=== PATIENT | male | born 1975 ===

== ENCOUNTER 2017-11-22 11:06 | Emergency (ER) | payer SELFPAY ==
[2017-11-22 11:14] VITALS: BMI 30.9
[2017-11-22 11:15] VITALS: BP 123/83; PULSE 72; RESP 20; TEMP 98.4; O2SAT 98
--- NOTE | 2017-11-22 12:47 | RAD ---
PROCEDURE: Left Knee Radiographs. HISTORY: Pain. COMPARISON: None. FINDINGS: BONES: Normal. No fracture. JOINTS: Normal. No osteoarthritis. JOINT EFFUSION: None. OTHER FINDINGS: None. IMPRESSION: Normal radiographs of the left knee.
--- NOTE | 2017-11-22 12:48 | RAD ---
PROCEDURE: Radiographs of the Left Shoulder HISTORY: pain, s/p fall COMPARISON: No prior. FINDINGS: BONES: Normal. No fracture. JOINTS: Normal. Glenohumeral and acromioclavicular joints preserved. No osteoarthritis. SOFT TISSUES: Normal. OTHER FINDINGS: None. IMPRESSION: Normal radiographs of the left shoulder.
--- NOTE | 2017-11-22 13:35 | ED PDOC ---
HPI: General Adult Time Seen by Provider: 11/22/17 11:46 Chief Complaint (Nursing): Trauma Chief Complaint (Provider): Left shoulder and knee pain after fall 4 feet History Per: Patient History/Exam Limitations: no limitations Onset/Duration Of Symptoms: Days Have you had recent travel within the past 21 days to any of the following countries: [place], [place], [place] or [place]?: No Current Symptoms Are (Timing): Still Present Additional Complaint(s): 42 yo male with no medical problems presents with left knee and shoulder pain after a fall off ladder approx 4 feet. PT states he landed on kne and hurt shoulder trying to prevent falling. Pt states he did not hit his head. PT states that he did not take anything for pain [employer]. Past Medical History Vital Signs: Last Vital Signs Temp 98.4 F 11/22/17 11:14 Pulse 72 11/22/17 11:14 Resp 20 11/22/17 11:14 BP 123/83 11/22/17 11:14 Pulse Ox 98 11/22/17 11:14 - Medical History PMH: Denies: Chronic Kidney Disease - Surgical History Surgical History: No Surg Hx - Family History Family History: States: No Known Family Hx - Home Medications Home Medications: Ambulatory Orders Medication Instructions Recorded Ibuprofen [Motrin Tab] 800 mg PO Q6H PRN #20 tab 11/22/17 - Allergies Allergies/Adverse Reactions: Allergies Allergy/AdvReac Type Severity Reaction Status Date / Time No Known Allergies Allergy Verified 11/22/17 11:42 Physical Exam - Reviewed Nursing Documentation Reviewed: Yes Vital Signs Reviewed: Yes - Physical Exam Appears: Positive for: Well, Non-toxic, No Acute Distress Head Exam: Positive for: ATRAUMATIC, NORMAL INSPECTION, NORMOCEPHALIC Skin: Positive for: Normal Color, Warm, DRY Eye Exam: Positive for: Normal appearance ENT: Positive for: Normal ENT Inspection Neck: Positive for: Normal Cardiovascular/Chest: Positive for: Regular Rate, Rhythm Respiratory: Positive for: Normal Breath Sounds. Negative for: Accessory Muscle Use, Respiratory Distress Back: Positive for: Normal Inspection Extremity: Positive for: Normal ROM Neurologic/Psych: Positive for: Alert, Oriented - ECG O2 Sat by Pulse Oximetry: 98 Medical Decision Making Medical Decision Makin - Pt states that he feels "perfecto". shoulder XR and knee XR without acute fracture or dislocation Disposition - Clinical Impression Clinical Impression: Fall, Shoulder pain, Knee pain - Patient ED Disposition Is Patient to be Admitted: No Counseled Patient/Family Regarding: Diagnosis, Need For Followup, Rx Given - Disposition Referrals: [facility] [Outside] Disposition: Routine/Home Disposition Time: 13:40 Condition: GOOD Prescriptions: Ibuprofen [Motrin Tab] 800 mg PO Q6H PRN #20 tab PRN Reason: Pain Instructions: Shoulder Pain (DC) Print Language: [place]
== END 2017-11-22 14:30 | disposition home or self-care (01) ==
LOC: H.ER 11:06
DX: M25.512 Pain in left shoulder (principal); M25.562 Pain in left knee; W11.XXXA Fall on and from ladder, initial encounter; Y99.0 Civilian activity done for income or pay